=== PATIENT | female | born 1985 | race African-American/Black ===

== ENCOUNTER 2024-02-18 21:21 | Emergency (ER) | payer MEDICAID ==
[~2024-02-18] VITALS: Ht 165.1 cm; Wt 122.0 kg
[2024-02-19] MEDS: CYCLOBENZAPRINE HCL 10 MG TAB PO ONE (01:09)
[2024-02-19] MEDS: KETOROLAC TROMETH 60MG/2ML VIAL IM ONE (01:10)
[2024-02-19] MEDS ORDERED: IBUP-1455 PO (01:15)
[2024-02-19] MEDS ORDERED: CYCL-839 PO (01:15)
[2024-02-19 02:24] VITALS: BP 166/66; PULSE 86; RESP 16; TEMP 98.2; O2SAT 98
== END 2024-02-19 02:26 | disposition home or self-care (01) ==
LOC: ER 21:21 → EDBD 21:21 → ER 02-19 02:25
DX: M54.2 Cervicalgia (principal); M54.6 Pain in thoracic spine; R51.9 Headache, unspecified; I10 Essential (primary) hypertension; Z79.899 Other long term (current) drug therapy; V89.2XXA Person injured in unspecified motor-vehicle accident, traffic, initial encounter; Y93.89 Activity, other specified; Y92.89 Other specified places as the place of occurrence of the external cause; Y99.8 Other external cause status
CPT/HCPCS: 96372; 99283; J1885